=== PATIENT | male | born 1955 | race Caucasian/White ===

== ENCOUNTER → 2021-02-04 | Outpatient (CLI) | payer BC ==
[~2021-02-04] MED LIST: ASPIRIN CHEWABL81 MG PO; BENTYL 10MG CAP10 MG PO; BUDESONIDE EC3 MG PO; CRESTOR20 MG PO; DEXILANT60 MG PO; HYDROXYZINE HCL25 MG PO; LORCET 5-325 M1 EACH PO; MAG-OX 400 TAB400 MG PO; MOBIC7.5 MG PO; NORCO 10-325 T1 EACH PO; NORCO 7.5-3251 EACH PO; PERCOCET 5-3251 EACH PO; PRINIVIL5 MG PO; SENOKOT-S TABL1 EACH PO; VITAMIN D PO; VITAMIN D210 MCG PO; VITAMIN D250000 UNIT PO; XIFAXAN550 MG PO
== END ==
LOC: KOH-I 15:12
DX: M25.512 Pain in left shoulder (principal); Z96.612 Presence of left artificial shoulder joint
CPT/HCPCS: 73030

== ENCOUNTER → 2021-08-23 | Outpatient (CLI) | payer BC | LOC: KOH-I 14:14 | DX: Z87.891 Personal history of nicotine dependence (principal); J98.4 Other disorders of lung | CPT/HCPCS: 71271 ==